=== PATIENT | female | born 1980 | race African-American/Black ===

== ENCOUNTER 2019-12-21 16:41 | Emergency (ER) | payer OTHER ==
[~2019-12-21] VITALS: Ht 154.9 cm; Wt 81.2 kg
[~2019-12-21 16:41] MED LIST: ALBUTEROL SULF8.5 GM INH; ALPRAZOLAM1 MG ORAL; NORCO 5-325 TA1 EACH ORAL
--- NOTE | 2019-12-21 17:03 | Emergency Room Report ---
History of Present Illness General Chief Complaint: Abdominal Pain Source: Patient Present Illness HPI Patient presents with complaints of left lower back pain with some radiation towards the front Reports that she has had kidney stones before and it felt fairly similar Reports the pain has been ongoing for the past 4 days denies any vomiting denies any chest pain or shortness of breath denies any dysuria Denies any lower anterior abdominal pain Denies any fall or trauma Allergies: Coded Allergies: ASPIRIN (Verified Allergy, Severe, sob, 11/13/13) IBUPROFEN (Verified Allergy, Severe, sob, 11/13/13) KETOROLAC (Verified Allergy, Severe, sob, 11/13/13) METOCLOPRAMIDE (Verified Allergy, Severe, panic attacks, 11/13/13) MORPHINE (Verified Allergy, Severe, sob, 11/13/13) NSAIDS (NON-STEROIDAL ANTI-INFLAMMA (Verified Allergy, Severe, sob, ) PROCHLORPERAZINE (Verified Allergy, Intermediate, panic atacks, 11/13/13) COVID-19 Screening Contact w/high risk pt: No Recent Travel to affected area: No Experienced COVID-19 symptoms?: No Patient History Past Medical History: see triage record Last Menstrual Period: na Reviewed Nursing Documentation: PMH: Agreed; PSxH: Agreed Nursing Documentation-PMH Past Medical History: No History, Except For Hx Hypertension: Yes Hx Asthma: Yes History Of Psychiatric Problem: Yes - anxiety Review of Systems All Other Systems: negative except mentioned in HPI Physical Exam Vital Signs Date Time Temp Pulse Resp B/P (MAP) Pulse Ox O2 Delivery O2 Flow Rate FiO2 12/21/19 16:45 97.9 112 20 119/73 (88) 97 Room Air Sp02 EP Interpretation: reviewed, normal General Appearance: mild distress - Appears uncomfortable in pain Head: normocephalic, atraumatic Eyes: bilateral eye PERRL, bilateral eye EOMI ENT: EOM grossly intact Neck: supple Respiratory: lungs clear, no respiratory distress, no retraction Cardiovascular #1: regular rate, rhythm Gastrointestinal: non tender, soft Genitourinary: no CVA tenderness - However subjectively points to the left flank area and lower back posterior superior iliac crest region Musculoskeletal: normal inspection Neurologic: alert, oriented x3 Skin: no rash Lymphatic: no adenopathy Medical Decision Making Diagnostic Impression: Primary Impression: abdominal pain Additional Impression: narcotic seeking behavior ER Course With the patient's history and examination, multiple differentials considered, including but not limited to , ectopic , ovarian torsion, gastritis, cholecystitis, pancreatitis, appendicitis Other differential such as kidney stone also entertained Patient required urine testing and imaging Patient at this time does not want to stay any further And was not able to give urine sample prior to any further medication being provided Patient at this time wants to leave AGAINST MEDICAL ADVICE she has full decision -making capacity and understands leaving at this time can lead to worsening symptoms and possible Patient has CURES review which shows significant prescriptions and multiple number of prescriptions from different providers this is concerning Last Vital Signs Date Time Temp Pulse Resp B/P (MAP) Pulse Ox O2 Delivery O2 Flow Rate FiO2 12/21/19 16:45 97.9 112 20 119/73 (88) 97 Room Air Status: other Disposition: AGAINST MEDICAL ADVICE Condition: Unknown Phong Maier DO Dec 21, 2019 17:03
[2019-12-21 17:25] VITALS: BP 119/73
== END 2019-12-21 17:25 | disposition left against medical advice (07) ==
LOC: EMR 17:00
DX: R10.9 Unspecified abdominal pain (principal); M54.5 Low back pain; Z76.5 Malingerer [conscious simulation]; Z88.6 Allergy status to analgesic agent; Z88.8 Allergy status to other drugs, medicaments and biological substances; I10 Essential (primary) hypertension; F41.9 Anxiety disorder, unspecified
CPT/HCPCS: 99282